=== PATIENT | male | born 2000 | race African-American/Black ===

== ENCOUNTER 2025-04-09 12:02 | Emergency (ER) | payer OTHER ==
[~2025-04-09] VITALS: Ht 180.3 cm; Wt 77.1 kg
[2025-04-09] MEDS: KETOROLAC 30 MG/ML 1 ML VIAL IV ONE (13:53)
[2025-04-09] MEDS: ACETAMINOPHEN *IV* 1,000 MG in IV 1 EA IV ONE (13:54)
[2025-04-09] MEDS: NS (Normal Saline) 0.9% 1,000 ML IV ONE (13:56)
[2025-04-09 15:31] VITALS: BP 102/58; TEMP 96.8; O2SAT 100
== END 2025-04-09 15:43 | disposition home or self-care (01) ==
LOC: M ED 12:02
DX: G43.909 Migraine, unspecified, not intractable, without status migrainosus (principal)
CPT/HCPCS: 70450; 96365; 96375; 99284; J0131; J1885; J2765

== ENCOUNTER 2025-05-01 02:21 | Emergency (ER) | payer OTHER ==
[~2025-05-01] VITALS: Ht 180.3 cm; Wt 74.1 kg
[2025-05-01 04:24] LABS: BASO # 0.1 10^3/uL (0.0-0.2); BASO % 1.1 % (0.0-1.0); EOS # 0.1 10^3/uL (0.0-0.5); EOS % 1.5 % (0.0-3.0); LYMPH # 2.3 10^3/uL (1.5-5.0); LYMPH % 42.3 % (24.0-44.0); MONO # 0.5 10^3/uL (0.0-0.8); MONO % 9.2 % (2.0-8.0); NEUTROPHILS # 2.5 10^3/uL (1.5-8.5); NEUTROPHILS % 45.7 % (36.0-66.0); PLATELET COUNT, AUTOMATED 202 10^3/uL (150-450)
[2025-05-01 04:47] LABS: ALT/SGPT 20.0 U/L (7.0-40); AST/SGOT 27.0 U/L (<34); CALCIUM LEVEL 9.3 MG/DL (8.5-10.1); CARBON DIOXIDE LEVEL 28.0 MMOL/L (20-31); CHLORIDE LEVEL 103.0 MMOL/L (98-107); CREATININE FOR GFR 1.16 MG/DL (0.70-1.30); GLOMERULAR FILTRATION RATE 88.5 (>60); POTASSIUM SERUM 4.3 MMOL/L (3.5-5.1); SODIUM LEVEL 142.0 MMOL/L (136-145)
[2025-05-01] MEDS: NS (Normal Saline) 0.9% 1,000 ML IV ONE (06:46)
[2025-05-01] MEDS: ONDANSETRON 4MG 2ML VIAL IV ONE (06:46)
[2025-05-01] MEDS: PANTOPRAZOLE 40MG VIAL IV ONE (08:44)
[2025-05-01] MEDS ORDERED: PROT20TA11 PO (10:27)
[2025-05-01] MEDS ORDERED: ONDA-282 PO (10:27)
[2025-05-01 10:46] VITALS: BP 111/68; TEMP 97.1; O2SAT 99
== END 2025-05-01 10:40 | disposition home or self-care (01) ==
LOC: M ED 02:21
DX: R11.2 Nausea with vomiting, unspecified (principal); R19.7 Diarrhea, unspecified; G43.909 Migraine, unspecified, not intractable, without status migrainosus; Z79.83 Long term (current) use of bisphosphonates; Z79.899 Other long term (current) drug therapy
CPT/HCPCS: 80048; 80076; 83690; 85025; 87486; 87581; 87633; 87798; 93041; 96361; 96374; 96375; 99285; J2405; J2470; J2765